=== PATIENT | male | born 1975 | race Caucasian/White ===

== ENCOUNTER → 2019-12-11 11:02 | Outpatient (CLI) | payer BC ==
[~2019-12-11 11:02] MED LIST: LISINOPRIL10 MG PO; PRILOSEC10 MG PO; STERAPRED DS 1210 MG PO; VALIUM5 MG PO
== END | disposition home or self-care (01) ==
LOC: D.HCCECHO 11:00
PROVIDERS: ATTEND Internal Medicine Cardiovascular Disease
DX: I20.9 Angina pectoris, unspecified (principal)

== ENCOUNTER 2019-12-31 12:13 | Day surgery (SDC) | payer BC ==
[~2019-12-31] VITALS: Ht 188 cm; Wt 103.2 kg
--- NOTE | ~2019-12-31 | HEMODYNAMI ---
PATIENT:RUFUS GUTIERRES MEDICAL RECORD: [id number] : 73 LOCATION:[facility] ADMISSION DATE: 12/31/19 Generatedon:12/31/201914:47 Patient name: RUFUS GUTIERRES Patient #: [id number] SSN: [id number] : 1975 Date of study: 12/31/2019 Page: Of Hemodynamic Procedure Report Patient Data Patient Demographics Procedure consent was obtained First Name: RUFUS Gender: Male Last Name: NENITA : 1975 [facility] Initial: D Age: 44 year(s) Patient #: [id number] Race: SSN: [id number] Additional ID: [id number] Contact details [address]: [address] [place] [address] [address] State: [place] City: [place] Zip code: [address] Past Medical History Allergies Allergen Reaction Date Comments Reported Other allergy 12/31/2019 [facility] Admission Admission Data Admission Date: 12/31/2019 Admission Time: 12:13 Arrival Date: 12/31/2019 Arrival Time: 0:00 Insurance Payor: Private health insurance Height (in.): 74.02 BSA: 2.29 (m2) Height (cm.): 188 BMI: 29.14 (kg/m2) Weight (lbs.): 227.08 Weight (kg.): 103 Lab Results Lab Result Date: 12/31/2019 Lab Result Time: 0:00 Biochemistry Name Units Result Min Max BUN mg/dl 9 --(*---)-- 7 18 Creatinine mg/dl 1.3 --(---*)-- 0.6 1.3 eGFR ml/min 63 *-(----)-- 90 120 NONAFRICAN CBC Name Units Result Min Max Hematocrit % 46.8 --(-*--)-- 42 54 Hemoglobin g/dl 16 --(--*-)-- 13.5 17.5 Procedure Procedure Types Cath Procedure Diagnostic Procedure [facility] w/Coronaries Sedation Charges Moderate Sedation up to 15 minutes Procedure Description Procedure Date Procedure Date: 12/31/2019 Procedure Start Time: 14:27 Procedure End Time: 14:45 Procedure Staff Name Function Luan Schwab MD Performing Physician Liss Palacios RT Monitor Catalina Garcia RN Nurse Isabelle Delaney RT Scrub Indication Abnormal nuclear perfusion study Procedure Data Cath Procedure Fluoroscopy Diagnostic fluoroscopy Total fluoroscopy Time: 3.6 time: 3.6 min min Diagnostic fluoroscopy Total fluoroscopy dose: 530 dose: 530 mGy mGy Contrast Material Contrast Material Type Amount (ml) Isovue 300 63 Entry Location Entry Primary Successful Side Size Upsize Upsize Entry Closure Grayson ccessful Closure Location (Fr) 1 (Fr) 2 (Fr) Remarks Device Remarks Radial Right 6 Fr Mechanical artery Short Compression Estimated blood loss: 5 ml Diagnostic catheters Device Type Used For End Catheter Placement DIAGNOSTIC [place] 110cm 5 Procedure Fr catheter ([id number]) DIAGNOSTIC AR MOD 5Fr Right Coronary Catheter ([id number]) Angiography Procedure Complications No complications Procedure Medications Medication Administration Route Dosage Oxygen etCO2 Nasal cannula 2 l/min Lidocaine 2% added to field 20 Heparin Flush Bag added to field 2 bags (1000units/500ml NS) 0.9% NaCl I.V. 100 ml/hr Radial Cocktail I.A. 1 syringe (Verapamil 2mg/Nitro 400mcg/Heparin 1500units) Versed I.V. 2 mg Fentanyl I.V. 100 mcg Versed I.V. 1 mg Fentanyl I.V. 50 mcg Versed I.V. 1 mg Fentanyl I.V. 50 mcg Hemodynamics Rest BSA: 2.29 (m2) HGB: 16 (g/dl) O2 Consumption: Estimated: 287.63 (ml/min) O2 Cons umption indexed: Estimated:125.6 (ml/min/m) Heart Rate: 83 (bpm) Pressure Samples Time Site Value (mmHg) Purpose Heart Use Rate(bpm) 14:31 LV 141/-8,10 Snapshot 100 Gradients Valve Time Site Site Mean SEP/DFP Peak To Heart Use 1 2 (mmHg) (sec/min) Peak Rate (mmHg) (bpm) Aortic 14:31 LV AO 103 Snapshots Pre Cath Intra NCS Post Cath Vital Signs Time Heart Resp SPO2 etCO2 NIBP (mmHg) Rhythm Pain Sedation Rate (ipm) (%) (mmHg) Status Level (bpm) 14:12:58 84 10 99 37.4 139/91(115) NSR 0 (11) 10(A) , No pain 14:17:16 83 14 99 38.9 135/90(112) NSR 0 (11) 10(A) , No pain 14:21:32 87 15 99 37.4 136/94(110) NSR 0 (11) 10(A) , No pain 14:25:46 81 14 99 40.4 138/94(112) NSR 0 (11) 10(A) , No pain 14:30:02 88 17 99 40.4 141/103(113) NSR 0 (11) 10(A) , No pain 14:34:16 110 16 97 48.6 142/90(100) NSR 0 (11) 10(A) , No pain 14:38:36 100 17 97 44.9 144/89(113) NSR 0 (11) 10(A) , No pain 14:42:52 97 16 98 41.9 140/94(110) NSR 0 (11) 10(A) , No pain Medications Time Medication Route Dose Verified Delivered Reason Notes Effectiveness by by 14:12:33 Oxygen etCO2 2 l/min Luan Buffie used for Nasal Zaheer Garcia RN procedure cannula 14:12:39 Lidocaine 2% added 20ml Luan Luan for local to vial Zaheer Schwab MD anesthetic field 14:12:45 Heparin Flush added 2 bags Luan Luan used for Bag to Zaheer Schwab MD procedure (1000units/500ml field NS) 14:12:54 0.9% NaCl I.V. 100 Luan Buffie Per ml/hr Zaeher Garcia RN physician 14:26:08 Fentanyl I.V. 100 mcg Luan Buffie for sedation Zaheer Garcia RN 14:26:52 Versed I.V. 2 mg Luan Buffie for sedation Zaheer Garcia RN 14:30:33 Radial Cocktail I.A. 1 Luan Luan for (Verapamil syringe Zaheer Schwab MD vasodilation 2mg/Nitro 400mcg/Heparin 1500units) 14:31:20 Versed I.V. 1 mg Luan Buffie for sedation Zaheer Garcia RN 14:31:25 Fentanyl I.V. 50 mcg Luan Buffie for sedation Schwab MD Garcia RN 14:36:05 Versed I.V. 1 mg Luan Arnold for sedation Zaheer Garcia RN 14:36:34 Fentanyl I.V. 50 mcg Luan Arnold for sedation Zaheer Garcia bale piler Log Time Note 13:58:46 Informed consent obtained and on chart 13:59:51 Indication : Abnormal nuclear perfusion study 13:59:58 Procedure Status Elective Heart Cath (OP). 14:00:07 Catalina Garcia RN sent for patient. Start room use. 14:00:11 Time tracking: Regular hours (M-F 7:00 - 5:00) 14:00:23 Plan of Care:Hemodynamics will remain stable., Cardiac rhythm will remain stable., Comfort level will be maintained., Respiratory function will remain adequate., Patient/ family verbilizes understanding of procedure., Procedure tolerated without complication., Recovers from procedure without complications.. 14:02:01 Patient allergic to Other allergyPCN 14:09:26 Patient received from Pre/Post Procedure Room to CCL 1 Alert and oriented. Tansferred to table in Supine position. 14:11:11 Stress Test: yes; abnormal ANTERIOR AND LATERAL 14:11:43 Warm blankets applied, and deborah hugger turned on for patient comfort. 14:11:44 Correct patient and procedure confirmed by team. 14:11:45 ECG and BP/O2 sat monitors applied to patient. 14:11:46 Vital chart was started 14:11:49 Baseline sample Acquired. 14:11:59 Rhythm: sinus rhythm 14:12:01 Full Disclosure recording started 14:12:03 - 14:12:10 H&P Date Dictated: 12/31/2019 H&P Addendum completed by physician on day of procedure. (MUST COMPLETE FOR ALL OUTPATIENTS), New H&P dictated by physician.. 14:12:12 Pre-procedure instructions explained to patient. 14:12:13 Pre-op teaching completed and patient verbalized understanding. 14:12:16 Family in patients room. 14:12:18 Patient NPO since Midnight. 14:12:25 Is the patient allergic to Iodine/contrast media? No. 14:12:28 Was the patient premedicated? Yes 14:12:31 Is patient on blood thinner?No 14:12:33 Oxygen 2 l/min etCO2 Nasal cannula was administered by Catalina Garcia RN; used for procedure; Verbal order read back and verified. 14:12:33 Patient diabetic? No. 14:12:35 ----Pre-sedation anethsthesia assessment.---- 14:12:39 Lidocaine 2% 20ml vial added to field was administered by Luan Schwab MD ; for local anesthetic; Verbal order read back and verified. 14:12:39 Previous problem with sedation/anesthesia? No ? 14:12:42 Snore? Yes 14:12:44 Sleep apnea? No 14:12:45 Heparin Flush Bag (1000units/500ml NS) 2 bags added to field was administered by Luan Schwab MD; used for procedure; Verbal order read back and verified. 14:12:47 Deviated septum? Unknown 14:12:51 Opens mouth fully? Yes 14:12:54 0.9% NaCl 100 ml/hr I.V. was administered by Catalina Garcia RN; Per physician; Verbal order read back and verified. 14:12:54 Sticks out tongue? Yes 14:13:15 Airway obstruction? Unknown RECENTLY STARTED USEING RESCURE INHALER 14:13:21 Dentures? No ? 14:13:37 Pre procedure: right dorsailis pedis pulse 2+ Normal; easily identifiable; not easily obliterated 14:13:47 IV patent on arrival in left hand with 0.9% NaCl at [facility]. 14:14:30 Lab Result : BUN 9 mg/dl 14:14:30 Lab Result : eGFR NONAFRICAN 63 ml/min 14:14:30 Lab Result : Creatinine 1.3 mg/dl 14:14:30 Lab Result : Hemoglobin 16 g/dl 14:14:30 Lab Result : Hematocrit 46.8 % 14:14:34 Lab results completed and on chart. 14:14:38 Lab results completed and on chart. 14:14:47 Right Radial & Right Groin area was prepped with chlora-prep and draped in sterile fashion 14:14:52 Alarms reviewed by [facility] NM[facility]ie 14:14:53 Sharps counted by scrub and verified by R.N. 14:14:58 Use device set Radial Dx or PCI 14:15:00 ACIST Syringe (34752) opened to sterile field. 14:15:01 Medline Cath Pack ([id number]) opened to sterile field. 14:15:02 Bag Decanter (2002S) opened to sterile field. 14:15:02 ACIST Hand Control (50808) opened to sterile field. 14:15:03 ACIST Manifold (75196) opened to sterile field. 14:15:04 MBrace Wrist Support ([id number]) opened to sterile field. 14:15:06 NEEDLE Cook 21G 4cm Radial ([id number]) opened to sterile field. 14:15:08 EMERALD Guide Wire (502-341) opened to sterile field. 14:15:09 SHEATH 6FR RAIN (0447713) opened to sterile field. 14:25:15 Physician arrived 14:25:16 --------ALL STOP TIME OUT------ 14:25:20 Final Timeout: patient, procedure, and site verified with staff and physician. All members of the team are in agreement. 14:25:23 Right Radial & Right Groin site verified by team. 14:25:29 Fire Safety Assessment: A--An alcohol-based skin anteseptic being used preoperatively., C--Open oxygen or nitrous oxide is being used., D--An ESU, laser, or fiber-optic light is being used. 14:25:34 Physical assessment completed. ASA score P 2 - A patient with mild systemic disease as per Luan Schwab MD. 14:26:08 Fentanyl 100 mcg I.V. was administered by Catalina Garcia RN; for sedation; Verbal order read back and verified. 14:26:40 2) 60-89 Mildly reduced kidney function, and other findings (as for stage 1) point to kidney disease. 14:26:46 Maximum allowable contrast dose (3.7 X eGFR X 0.75)175 ml. 14:26:52 Versed 2 mg I.V. was administered by Catalina Garcia RN; for sedation; Verbal order read back and verified. 14::53 Sedation plan: IV Moderate Sedation Medication:Versed, Fentanyl 14:27:06 Procedure started. 14:27:27 Risk of Mortality: 0.1 14:27:32 Risk of blood transfusion: 0.1 14:27:35 Risk of COREEN: 0.4 14:27:44 Local anesthetic to right radial artery with Lidocaine 2% by Luan Schwab MD.INITIAL ACCESS ONLY 14:28:37 Zero performed for pressure channel P1 14:29:31 Arrival Date: 12/31/2019 12:00:00 AM 14:29:41 Patient Height : 74.02 inches 14:29:47 Patient Weight : 227.08 lbs 14:29:57 Insurance Payor : Private health insurance 14:30:20 A 6 Fr Short sheath was inserted into the Right Radial artery 14:30:33 Radial Cocktail (Verapamil 2mg/Nitro 400mcg/Heparin 1500units) 1 syring e I.A. was administered by Luan Schwab MD; for vasodilation; Verbal order read back and verified. 14:30:33 A DIAGNOSTIC [place] 110cm 5 Fr catheter (045533) was advanced over the wire and used for Procedure. 14:30:40 Injector settings: Ml/sec: 5, Volume: 15, 14:30:44 LV gram done using NAVARRETE 14:31:20 Versed 1 mg I.V. was administered by Catalina Garcia RN; for sedation; Verbal order read back and verified. 14:31:25 Fentanyl 50 mcg I.V. was administered by Catalina Garcia RN; for sedation; Verbal order read back and verified. 14:31:36 EF : 60 % 14:31:54 LV hemodynamics recorded. 14:32:43 LCA angiography performed. 14:32:47 Injector settings: Ml/sec: 3, Volume: 6, 14:35:51 Catheter exchanged over wire. 14:36:05 Versed 1 mg I.V. was administered by Catalina Garcia RN; for sedation; Verbal order read back and verified. 14:36:34 Fentanyl 50 mcg I.V. was administered by Catalina Garcia RN; for sedation; Verbal order read back and verified. 14:36:34 A DIAGNOSTIC AR MOD 5Fr Catheter ([id number]) was advanced over the wire and used for Right Coronary Angiography. 14:38:06 RCA angiography performed. 14:38:29 ZEPHYR REGULAR TR BAND (034475) opened to sterile field. 14:38:32 Injector settings: Ml/sec: 3, Volume: 6, 14:38:46 Catheter removed. 14:39:14 Sheath removed intact; hemostasis achieved with Mechanical Compression to the Right Radial artery. 14:39:17 Procedure ended.(Physican Out) 14:39:23 Contrast amount:Isovue 300 63ml. 14:39:29 Fluoroscopy time 03.60 minutes. 14:39:33 Fluoroscopy dose: 530 mGy 14:39:33 Flurop Dose total: 530 14:39:41 Dose Area Product 02158 mGy/cm. 14:39:45 Maximum allowable dose exceeded? No. 14:39:46 Sharps counted by scrub and verified by R.N. 14:39:51 [place] band inflated with 10cc of air. 14:39:54 Insertion/operative site no bleeding no hematoma. 14:40:01 Post right radial artery:stable 14:40:06 Post-procedure physical assessment completed. ASA score P 2 - A patient with mild systemic disease as per Luan Schwab MD. 14:40:11 Post procedure rhythm: unchanged. 14:40:15 Estimated blood loss: 5 ml 14:40:16 Post procedure instruction explained to patient.Patient verbalizes understanding. 14:40:17 Patient needs reinforcement of post procedure teaching. 14:42:41 Procedure type changed to Cath procedure, Diagnostic procedure, C, C w/Coronaries, Sedation Charges, Moderate Sedation up to 15 minutes 14:42:45 Procedure and supply charges have been captured, reviewed, submitted an d are correct. 14:44:40 Procedure Complication : No complications 14:44:44 Vital chart was stopped 14:44:52 [facility] Findings: MVD- PCI performed (see procedure note) 14:45:01 Operative report dictated upon procedure completion. 14:45:16 See physician's report for complete and final results. 14:45:43 Report given to Pre/Post Procedure Room. 14:45:48 Patient transfered to Pre/Post Procedure Room with Stretcher. 14:45:53 Procedure ended. 14:45:53 Full Disclosure recording stopped 14:46:05 End room use (Document Last) Device Usage Item Name Manufacture Quantity Catalog Hospital Part Current Minima l Lot# / Number Charge Number Stock Stock Serial# Code ACIST Acist 1 06646 526658 117555 [id number] 20 Rockstar [id number] Medline Medline 1 [id number] 686013 53399 044970 5 Cath Pack ([id number]) Bag Microtek 1 [id number] 55281 878754 5 Decanter Medical Inc. () ACIST Hand Acist 1 59116 273696 401408 102522 5 Control Medical (06351) Systems Inc ACIST Acist 1 32095 934482 468914 709127 5 Manifold Medical (75493) Systems Inc MBrace Advanced 1 140-0250-00 045052 04027 353983 5 Wrist Vascular Support Dynamics ([id number]) NEEDLE Cook Cook Medical 1 [id number] 112910 706056 710762 5 21G 4cm Radial (S51150) EMERALD Cardinal 1 502-455 646151 549010 038145 5 Guide Wire Health (502-455) SHEATH 6FR Cardinal 1 7509062 455633 3560240 416878 5 [facility] Health (0775831) DIAGNOSTIC Terumo 1 40-8043 812503 780670 005699 5 [place] 110cm 5 Fr catheter (565664) DIAGNOSTIC Cardinal 1 [id number] 724460 149993 685599 15 AR MOD 5Fr Health Catheter ([id number]) ZEPHYR Cardinal 1 270142 810478 4501484 733465 5 REGULAR TR Health BAND (046856) Signature Audit [place] Stage Time Signature Unsigned Intra-Procedure 12/31/2019 Liss 2:46:25 PM Suzanne RT(R) (CV) Intra-Procedure 12/31/2019 Catalina Garcia RN 2:46:53 PM Intra-Procedure 12/31/2019 Luan Schwab MD 2:47:26 PM [place] [id number] [place] [address]
[2019-12-31] MEDS ORDERED: NORVASC5 MG PO (12:29)
[2019-12-31] MEDS ORDERED: CYMBALTA30 MG PO (12:30)
[2019-12-31] MEDS ORDERED: VALIUM5 MG PO (12:30)
[2019-12-31] MEDS ORDERED: ALBUTEROL SULF8.5 GM INH (12:32)
[2019-12-31] MEDS ORDERED: COZAAR25 MG PO (12:32)
[2019-12-31] MEDS ORDERED: PRAVASTATIN SOD10 MG PO (12:32)
[2019-12-31 12:37] VITALS: BP 156/89; Ht 188 cm; Wt 103.2 kg
[2019-12-31 12:49] LABS: BASOPHILS 0.4 % (0-2); EOSINOPHILS 2.9 % (0-7); HEMATOCRIT 46.8 % (42.0-54.0); IMMATURE GRANULOCYTES 0.3 % (0-5); MCH 32.1 pg (26.0-34.0); MCHC 34.2 g/dL (31.0-37.0); MCV 93.8 fL (80.0-100.0); MEAN PLATELET VOLUME 10.8 fL (7.4-10.4); MONOCYTES 7.4 % (2-11); RBC 4.99 10x6/uL (4.20-6.10); RDW 14.4 % (11.5-14.5)
[2019-12-31 12:57] LABS: PLATELET COUNT 243 10x3/uL (130-400)
[2019-12-31 13:16] LABS: CHOL - HDL RATIO 4.5 ratio (2.3-4.9); LDL-HDL RATIO 2.7 ratio (1.5-3.5)
[2019-12-31 13:38] LABS: ANION GAP 12.9 mmol/L (8-16); CALCIUM 9.5 mg/dL (8.5-10.1); CARBON DIOXIDE 28.1 mmol/L (21.0-32.0); CREATININE - SERUM 1.3 mg/dL (0.6-1.3)
--- NOTE | 2019-12-31 14:50 | NUR ---
PT REC'D TO ROOM 3 VIA STRETCHER FROM WIPING RAG WASHER. MONITORS ESTAB. AT BS, DR. BORJA HAS UPDATED HER. SEE FLAT KNITTER - ALARMS ON AND C/L IN REACH.
--- NOTE | 2019-12-31 15:05 | NUR ---
R WRIST SITE C/D/I, NO S/S BLEEDING OR HEMATOMA. PULSES PALP, HAND WARM. VSS, PT GIVEN SPRITE PER REQUEST. AT BS. C/L IN REACH.
--- NOTE | 2019-12-31 15:35 | NUR ---
R WRIST SITE C/D/I, NO S/S BLEEDING OR SWELLING. PULSES PALP, VSS. PT REFUSES SANDWICH AT THIS TIME. C/L IN REACH.
--- NOTE | 2019-12-31 15:35 | NUR ---
R WRIST SITE C/D/I, NO S/S BLEEDING OR SWELLING. PULSES PALP. ALARMS ON AND C/L IN REACH.
--- NOTE | 2019-12-31 15:51 | NUR ---
4CC AIR REMOVED FROM Z BAND, NO BLEEDING OR S/S HEMATOMA NOTED. PT OFFERED SANDWICH BUT DECLINES AT THIS TIME. VSS. CALL LIGHT IN REACH, AT BS.
--- NOTE | 2019-12-31 16:15 | NUR ---
TOTAL 7 CC AIR REMOVED FROM Z BAND, NO S/S BLEEDING OR SWELLING. VSS. PT RESTING QUIETLY. C/L IN REACH.
--- NOTE | 2019-12-31 16:30 | NUR ---
ALL AIR REMOVED FROM Z BAND, NO S/S BLEEDING OR SWELLING. PULSES PALP. VSS. C/L IN REACH.
--- NOTE | 2019-12-31 16:47 | NUR ---
R WRIST C/D/I, NO S/S BLEEDING. PIV D/C'D INTACT, DSG APPLIED. PT ALLOWED UP TO GET DRESSED AND GO TO BR INDEPENDENTLY.
--- NOTE | 2019-12-31 16:50 | NUR ---
ALL DISCHARGE INSTRUCTIONS REVIEWED WITH PT AND HIS - INCLUDING RESTRICTIONS, MEDS AND F/U APPT. UNCERSTANDING VERBALIZED, NO QUESTIONS AT THIS TIME.
--- NOTE | 2019-12-31 16:55 | NUR ---
PT D/C'D VIA WC TO PRIVATE VEHICLE WITH ALL PAPER WORK AND BELONGINGS.
== END 2019-12-31 16:55 | disposition home or self-care (01) ==
LOC: D.CATH 12:13 → EDSTATUS 14:00 → D.CATH 14:00
PROVIDERS: ATTEND Internal Medicine Cardiovascular Disease
DX: I20.9 Angina pectoris, unspecified (principal); R94.39 Abnormal result of other cardiovascular function study; I10 Essential (primary) hypertension; J44.9 Chronic obstructive pulmonary disease, unspecified; K21.9 Gastro-esophageal reflux disease without esophagitis; R07.9 Chest pain, unspecified

== ENCOUNTER → 2020-02-07 12:28 | Outpatient (CLI) | payer OTHER ==
[2019-12-31 12:37] VITALS: BMI 29.2
[~2020-02-07 12:28] MED LIST changes: +ALBUTEROL SULF8.5 GM INH; +COZAAR25 MG PO; +CYMBALTA30 MG PO; +NORVASC5 MG PO; +PRAVASTATIN SOD10 MG PO
== END | disposition home or self-care (01) ==
LOC: D.RAD 12:28
PROVIDERS: ATTEND Pediatrics
DX: Z02.71 Encounter for disability determination (principal)